=== PATIENT | female | born 1955 | race Caucasian/White ===

== ENCOUNTER → 2016-10-22 | Outpatient (CLI) | payer BC ==
--- NOTE | 2016-10-22 11:03 | MM ---
Reason for exam: screening (asymptomatic). Last mammogram was performed 3 years and 1 month ago. History: Patient is postmenopausal. Family history of breast cancer in mother at age 71 and breast cancer in maternal aunt. Benign right mammotome panel of the right breast, October 04, 2010. Benign right US cyst aspiration of the right breast, October 04, 2010. Physical Findings: A clinical breast exam by your physician is recommended on an annual basis and results should be correlated with mammographic findings. MG Screening Mammo w CAD Bilateral CC and MLO view(s) were taken. Prior study comparison: September 21, 2013, bilateral digital screening mammo w/CAD. November 15, 2011, CAD bilateral diagnostic mammogram. The breast tissue is heterogeneously dense. This may lower the sensitivity of mammography. Previous mammotome biopsy within the right breast x 2. There is no discrete abnormality. ASSESSMENT: Benign, BI-RAD 2 RECOMMENDATION: Routine screening mammogram of both breasts in 1 year.
== END | disposition home or self-care (01) ==
LOC: RADMAMWWP 08:50
PROVIDERS: ATTEND Family Medicine
DX: Z12.31 Encounter for screening mammogram for malignant neoplasm of breast (principal)

== ENCOUNTER → 2020-05-06 | Outpatient (CLI) | payer BC ==
--- NOTE | 2020-05-09 00:10 | CT ---
EXAMINATION TYPE: CT abdomen pelvis w con DATE OF EXAM: 05/06/2020 COMPARISON: None HISTORY: rt colon mass CT DLP: 473.7 mGycm Automated exposure control for dose reduction was used. TECHNIQUE: Helical acquisition of images was performed from the lung bases through the pelvis. CONTRAST: Performed with Oral Contrast and with IV Contrast, patient injected with 100 mL of Isovue 300. FINDINGS: LUNG BASES: Normal. LIVER: 2.2 x 1.9 cm hypodense lesion of segment 2 (3:14). BILIARY SYSTEM: Normal. PANCREAS: Normal. SPLEEN: Normal. ADRENALS: Normal. KIDNEYS: Too small to characterize hypodense lesions bilaterally. No hydronephrosis. BOWEL: There is a 9 x 5.7 x 8.5 cm soft tissue mass in the cecum and proximal ascending colon (3:51, 7:24). There is significant narrowing of the region of the ileocecal valve (3:48) without evidence o f obstructing dilatation or obstruction. There is also soft tissue thickening of the terminal ileum ( 3:53, 7:30). Appendix appears normal. PERITONEUM: No pneumoperitoneum. No free fluid. LYMPH NODES: Right lower quadrant prominent 6 x 12 mm and round 7 x 8 mm lymph nodes (3:44). PELVIS: Normal. VASCULATURE: No abdominal aortic aneurysm. MUSCULOSKELETAL: No aggressive osseous destructive lesions. Degenerative changes of the spine. Grade 1 anterolisthesis of L5 on S1 with bilateral pars defects. IMPRESSION: 1. Large right colon mass, with narrowing of the bowel lumen however no evidence of bowel obstructio n. There is adjacent eccentric soft tissue thickening of the terminal ileum which may represent neopl astic involvement. 2. Indeterminate 2.2 cm hypodense liver lesion may represent metastatic disease. Recommend MRI of th e liver for further characterization. 3. Prominent right lower quadrant lymph nodes nodes likely represent metastatic disease.
== END | disposition home or self-care (01) ==
LOC: RADCTMAIN 14:24
PROVIDERS: ATTEND Surgery
DX: K63.89 Other specified diseases of intestine (principal); M79.89 Other specified soft tissue disorders; R59.9 Enlarged lymph nodes, unspecified
CPT/HCPCS: 74177; Q9967

== ENCOUNTER → 2020-05-20 | Outpatient (CLI) | payer BC ==
--- NOTE | 2020-05-21 10:08 | PE ---
Nuclear medicine PET/CT HISTORY: Colorectal cancer, initial Patient received 13.4 mCi F-18 FDG intravenously in delayed scanning was performed from the skull bas e to the mid thighs. Localization and attenuation correction CT scan was performed. Correlation CT abdomen pelvis 05/06/2020 Chest and neck: The left lobe of the thyroid gland shows a focus of hypermetabolic uptake. There is n o mediastinal, axillary, or hilar adenopathy, no cervical or supraclavicular adenopathy, no additiona l hypermetabolic uptake. There is no evident lung mass, no pleural or pericardial effusion. ABDOMEN: There is again noted low-attenuation within the left lobe of the liver, no suspicious hyperm etabolic uptake within the liver however. There is no retroperitoneal adenopathy. In the right hemipe lvis there is a soft tissue mass present as noted on CT, there is associated hypermetabolic uptake. N o inguinal adenopathy. No additional suspicious hypermetabolic uptake. Osseous structures show no suspicious uptake. IMPRESSION: Findings consistent with colorectal carcinoma, abnormal uptake corresponding to patient's mass. Abnormal uptake in the left thyroid gland, consider dedicated imaging and biopsy. Indeterminat e abnormality within the liver.
== END | disposition home or self-care (01) ==
LOC: RADPETMAIN 12:10
PROVIDERS: ATTEND Internal Medicine Hematology & Oncology
DX: C18.2 Malignant neoplasm of ascending colon (principal); R93.89 Abnormal findings on diagnostic imaging of other specified body structures
CPT/HCPCS: 78815; A9552

== ENCOUNTER → 2020-05-25 | Outpatient (CLI) | payer BC ==
[2020-05-25 11:26] LABS: HCT 47.2 % (34.0-46.0); HGB 14.9 gm/dL (11.4-16.0); MCH 31.8 pg (25.0-35.0); MCHC 31.7 g/dL (31.0-37.0); MCV 100.3 fL (80.0-100.0); Mean Platelet Volume 7.2; Platelet Count 341 k/uL (150-450); RDW 13.1 % (11.5-15.5); WBC 7.9 k/uL (3.8-10.6)
[2020-05-25 11:39] LABS: Potassium 4.1 mmol/L (3.5-5.1)
== END | disposition home or self-care (01) ==
LOC: LABPAT 10:08
PROVIDERS: ATTEND Surgery
DX: Z01.818 Encounter for other preprocedural examination (principal); C18.9 Malignant neoplasm of colon, unspecified
CPT/HCPCS: 80051; 85027; 86850; 86900; 86901; 93005

== ENCOUNTER 2020-06-02 09:21 | Inpatient (IN) | payer BC ==
[~2020-06-02 09:21] MED LIST: ACETAMINOPHEN TAB 500 MG TAB PO PRN; HEPARIN SODIUM,PORCINE 5,000 UNIT/ML 1 ML VIAL SQ PRN; HYDROmorphone 0.5 MG/0.5 ML SYRINGE IVP PRN; MIDAZOLAM 2 MG/2 ML VIAL IV PRN; metroNIDAZOLE-NS PMX 500 MG in SALINE 1 100ML.BAG IVPB PRN
[2020-06-02] MEDS: LACTATED RINGERS 1,000 ML IV SCH ×2 (11:21→13:43)
[2020-06-02] MEDS ORDERED: LIDOCAINE 1% (10MG/ML) FOR IV START INTRADERMA ONE (11:21)
[2020-06-02] MEDS: ONDANSETRON 4 MG/2 ML VIAL IVP ONE ×2 (11:53→16:51)
[2020-06-02] MEDS: SCOPOLAMINE 1.5MG/72HR PATCH TRANSDERM ONE ×2 (11:54→16:51)
[2020-06-02] MEDS: DEXAMETHASONE SOD PHOSPHATE 4 MG/ML 1 ML VIAL IV ONE ×2 (11:54→16:51)
[2020-06-02] MEDS ORDERED: MIDAZOLAM 2 MG/2 ML VIAL IVP ONE (12:02)
--- NOTE | 2020-06-02 12:30 | P.HPADDEND ---
H&P Addendum H&P Addendum Date: 06/02/20 Please refer to history and physical dictated 05/18. Patient underwent PET scan which showed no activity at the liver lesion site. Patient here today for elective right colectomy. Risks of bleeding, infection, duodenal and ureteral injury, hernia, anastomotic leak, recurrence, respiratory and cardiac complications, Covid infection reviewed. She understands and wishes to proceed.
[2020-06-02] MEDS ORDERED: NALOXONE 0.4 MG/ML 1 ML VIAL IV PRN (12:35)
[2020-06-02] MEDS ORDERED: NALBUPHINE 10 MG/ML (1 ML AMP) IV PRN (12:35)
[2020-06-02] MEDS ORDERED: diphenhydrAMINE 50 MG/ML 1 ML VIAL IVP PRN (12:35)
--- NOTE | 2020-06-02 12:40 | P.ANPRN ---
Procedure Note - Anesthesia - Epidural/Spinal Epidural Continuous Time Out Performed: Yes Date of Procedure: 06/02/20 Location of Patient: PreOp Indication: Acute Post-Operative Pain Sedation Type: Sedate with meaningful contact maintained Preparation: Sterile Dressing Position: Sitting Catheter: Indwelling Needle Guage: 18 Injectate: Test Dose Lidocaine1.5% w/1:200,000 epi (3cc) Narrative: L1-L2 Space and Loss of resistance to air technique used Blood Aspirated: No Pain Paresthesia on Injection Noted: No Events: Uneventful and Well Tolerated
[2020-06-02] MEDS ORDERED: GLYCOPYRROLATE 0.2 MG/ML 2 ML VIAL ONE (13:41)
[2020-06-02] MEDS ORDERED: MIDAZOLAM 2 MG/2 ML VIAL ONE (13:41)
[2020-06-02] MEDS ORDERED: NEOSTIGMINE 1 MG/ML 10 ML VIAL ONE (13:41)
[2020-06-02] MEDS ORDERED: fentaNYL (PF) 50 MCG/ML 2 ML AMP ONE (13:41)
[2020-06-02] MEDS ORDERED: ROCURONIUM 10 MG/ML (10 ML VIAL) IV ONE (13:41)
[2020-06-02] MEDS ORDERED: ePHEDrine SULFATE/0.9% NACL/PF 50 MG/5 ML SYRINGE IV ONE (13:41)
[2020-06-02] MEDS ORDERED: PROPOFOL 10 MG/ML 20 ML VIAL IV ONE (13:41)
[2020-06-02] MEDS ORDERED: LIDOCAINE 1% INJ 10MG/ML (20 ML MDV) ONE (13:41)
[2020-06-02] MEDS ORDERED: LACTATED RINGERS 1,000 ML IV ONE (14:24)
[2020-06-02] MEDS ORDERED: BENZOCAINE/MENTHOL LOZENG 1 EACH LOZENGE MUCOUS MEM PRN (15:17)
[2020-06-02] MEDS: ROPIVACAINE 400 MG, fentaNYL (PF) 625 MCG in SODIUM CHLORIDE 0.9% 158 ML EPIDURAL PRN ×2 (15:17→16:25)
--- NOTE | 2020-06-02 15:24 | P.OP ---
Date of Procedure: 06/02/20 Procedure(s) Performed: PREOPERATIVE DIAGNOSIS: Right colon cancer POSTOPERATIVE DIAGNOSIS: Same PROCEDURE: Right colectomy SURGEON: Zuhair EBL: 25 mL ANESTHESIA: General COMPLICATIONS: None OPERATIVE PROCEDURE: Placement placed in the operating table in the supine position. The patient was placed under general anesthesia. Abdomen was then prepped and draped sterilely. Midline incision made using the scalpel. Dissection through the subcutaneous tissues and fascia took place using electrocautery. Entrance into the perineal cavity occurred. Bookwalter retractor was utilized. The palpable mass was identified at the cecum. This measured approximately 6 cm in size. There was one palpable somewhat abnormal appearing lymph node within the mesentery adjacent to the right colic artery. This was included with our specimen. The cecum and terminal ileum were mobilized by incising the peritoneum. The white line of Toldt was incised as well. The mesentery of the cecum and ascending colon was brought medially. The duodenum was carefully preserved and no cautery was used adjacent to the duodenu m. The terminal ileum was divided using a linear 75 stapler. The transverse colon was then divided using a linear 75 stapler. Mesentery of the transverse colon and ascending colon cecum and terminal ileum was then divided using a combination of 0 silk ties and the LigaSure device. Specimen was passed off at that point. The area was irrigated. No bleeding was seen. The antimesenteric portion of the staple line of both the ileum and transverse colon was excised using electrocautery. The linear 75 stapler was fired along the antimesenteric border creating a [id number] anastomosis antiperistaltic. The defect was then closed using a TX 60 device. The TX 60 stapler line was imbricated using interrupted 3-0 GI silk sutures. A 3-0 GI silk crotch stitch was also placed. Again irrigation took place with no evidence of bleeding. No additional abnormalities in the bowel both small bowel and colon were identified. Palpation of the liver revealed no palpable masses. Irrigation of the abdomen took place. No bleeding was seen. The midline fascia was then reapproximated using 2 separate double-stranded looped PDS sutures. The subcutaneous tissues were closed using 3-0 Vicryl sutures. The skin was closed using jenny. Sterile dressings were applied. At the end of this procedure the sponge needle and ensure counts were correct. DISPOSITION: Stable to recovery room
[2020-06-02] MEDS: HEPARIN SODIUM,PORCINE 5,000 UNIT/ML 1 ML VIAL SQ SCH ×2 (16:50→21:39)
[2020-06-02] MEDS: D5-0.45% NACL WITH KCL 20MEQ/L 1,000 ML IV SCH (21:40)
[2020-06-02] MEDS: FAMOTIDINE 20 MG/2 ML VIAL IV SCH (21:43)
--- NOTE | 2020-06-02 23:49 | CONS ---
CONSULTATION DATE OF SERVICE: 06/02/2020. REASON FOR CONSULTATION: Advice regarding hypothyroidism and colon cancer requested by Dr. Moffett. HISTORY OF PRESENT ILLNESS: This 64-year-old woman with a past medical history of hypothyroidism, history of colon cancer, hernia repair, history of colonoscopy, previous history of nicotine dependence being followed by Dr. Yolie Moffett in the outpatient setting underwent right colectomy by Dr. Moffett for right colon cancer. The patient tolerated the procedure well. There is no history of fever, rigors. No history of headache, loss of consciousness, chest pain, palpitations at this time. PAST MEDICAL HISTORY: History of thyroid disorder, history of malignant tumor of the colon, history of hernia repair. MEDICATIONS: Medications prior to admission, home medications are: 1. Lipitor 10 mg daily. 2. Synthroid 100 mcg p.o. q.a.m. 3. Vitamin D2, 50,000 q.7 days. ALLERGIES: None. FAMILY HISTORY: History of breast cancer in the family. SOCIAL HISTORY: Previous history of smoking. No history of alcohol intake. REVIEW OF SYSTEMS: ENT: No diminished hearing or diminished vision. CARDIOVASCULAR SYSTEM: No angina. RESPIRATORY SYSTEM: No cough. GI: As mentioned earlier. : No dysuria or retention. NERVOUS SYSTEM: No numbness or weakness. ALLERGY/IMMUNOLOGY: No history of asthma or hayfever. MUSCULOSKELETAL: As mentioned earlier. HEMATOLOGY/ONCOLOGY: As mentioned earlier. ENDOCRINE: As mentioned earlier. CONSTITUTIONAL: As mentioned earlier. DERMATOLOGY: Negative. RHEUMATOLOGY: Negative. PSYCHIATRY: As mentioned earlier. PHYSICAL EXAMINATION: The patient is alert and oriented x3. Pulse 60, blood pressure is 123/71, respiration 17, temperature 97.7, pulse ox 96% on room air. HEENT: Conjunctivae normal. NECK: No jugular venous distention. CARDIOVASCULAR: S1, S2 muffled. RESPIRATORY: Breath sounds diminished at the bases. No rhonchi, no crackles. ABDOMEN: Soft, nontender. Status post surgery. LEGS: No edema. No swelling. NERVOUS SYSTEM: No focal deficits. LABS: Previous preop labs, hemoglobin 14.9. Otherwise, BUN is 8, creatinine is 1. ASSESSMENT: 1. Status post right colectomy for right colon cancer. 2. History of hypothyroidism. 3. History of hernia repair. 4. Remote history of nicotine dependence. 5. FULL CODE. RECOMMENDATIONS AND DISCUSSION: This 64-year-old woman who presented with multiple medical issues, at this time I recommend to continue the current medications, continue symptomatic treatment. Otherwise, DVT prophylaxis, incentive spirometry. Resume the home medications when the patient is p.o. We will follow the patient closely. Patient may be asked to follow up with Dr. Yolie Moffett closely after discharge. Thank you Dr. Moffett for letting us participate in the care of this patient. MMODL / IJN: [id number] /
[2020-06-03] MEDS: D5-0.45% NACL WITH KCL 20MEQ/L 1,000 ML IV SCH ×4 (05:28→21:34)
[2020-06-03 06:07] LABS: Basophils % (A) 0 %; Eosinophils % (A) 0 %; HCT 40.2 % (34.0-46.0); Lymphocytes # (A) 0.7 k/uL (1.0-4.8); Lymphocytes % (A) 6 %; MCH 32.5 pg (25.0-35.0); MCHC 32.4 g/dL (31.0-37.0); MCV 100.1 fL (80.0-100.0); Mean Platelet Volume 7.5; Monocytes # (A) 0.6 k/uL (0-1.0); Monocytes % (A) 5 %; Neutrophils # (A) 10.9 k/uL (1.3-7.7); Neutrophils % (A) 88 %; Platelet Count 245 k/uL (150-450); RBC 4.02 m/uL (3.80-5.40); RDW 13.3 % (11.5-15.5); WBC 12.3 k/uL (3.8-10.6)
--- NOTE | 2020-06-03 06:41 | P.PN ---
Progress Note - Text Progress Note Date: 06/03/20 Patient without complaints. Tolerating clears. Denies headache or weakness. Pain 5/10. Epidural at 8 ml/hr. Epidural site clean and dry. POD#1 s/p colectomy. Assessment and plan: will continue epidural. Patient is nervous about working with PT/OT and walking around today, and does note that she is having pain with coughing. We will increase the rate to 10.
[2020-06-03] MEDS: LACTATED RINGERS 1,000 ML IV SCH (09:35)
[2020-06-03] MEDS: LEVOTHYROXINE 100 MCG TAB PO SCH (09:36)
[2020-06-03] MEDS: FAMOTIDINE 20 MG/2 ML VIAL IV SCH ×2 (09:39→20:35)
[2020-06-03] MEDS: ATORVASTATIN 10 MG TAB PO SCH (09:39)
[2020-06-03] MEDS: HEPARIN SODIUM,PORCINE 5,000 UNIT/ML 1 ML VIAL SQ SCH ×3 (09:39→23:32)
[2020-06-03] MEDS: ALVIMOPAN 12 MG CAPSULE PO SCH ×2 (09:39→23:32)
[2020-06-03 09:40] LABS: African American GFR (CKD) 106.9 (60.0-200.0); Anion Gap 8.1 mmol/L (4.00-12.00); BUN/Creat Ratio 12.86 Ratio (12.00-20.00); Calcium 8.4 mg/dL (8.7-10.3); Carbon Dioxide 26.9 mmol/L (21.6-31.8); Non-African American GFR(CKD) 92.2 (60.0-200.0); Potassium 3.9 mmol/L (3.5-5.5)
--- NOTE | 2020-06-03 10:49 | P.PN ---
<Pao King - Last Filed: 06/03/20 10:44> Subjective Progress Note Date: 06/03/20 CHIEF COMPLAINT: Right colon cancer HISTORY OF PRESENT ILLNESS: Right colon cancer status post right colectomy. Patient is complaining of abdominal pain. And that it hurts to take in a deep breath. Anesthesia is increasing her epidural. She is passing flatus. No bowel movement. She denies any nausea or vomiting. Afebrile. WBC 12.3 Hgb 13 PHYSICAL EXAM: VITAL SIGNS: Reviewed. GENERAL: Well-developed in no acute distress. HEENT: No sclera icterus. Extraocular movements grossly intact. Moist buccal mucosa. Head is atraumatic, normocephalic. ABDOMEN: Soft. Mildly distended. Small amount of dried blood noted on middle of incision dressing NEUROLOGIC: Alert and oriented. Cranial nerves II through XII grossly intact. ASSESSMENT: 1. Right colon cancer status post right colectomy PLAN: -Anesthesia increased epidural strength for pain control -Continue clear liquid diet -Continue IV fluids -Encourage incentive spirometer use -GI prophylaxis Pepcid and DVT prophylaxis subcu heparin Physician Environmental Services Specialist note has been reviewed by physician. Signing provider agrees with the documented findings, assessment, and plan of care. Objective - Vital Signs Vital signs: Vital Signs Temp 98.2 F 06/03/20 08:00 Pulse 71 06/03/20 08:00 Resp 18 06/03/20 08:00 BP 132/76 06/03/20 08:00 Pulse Ox 95 06/03/20 08:00 Intake & Output 06/02/20 06/03/20 06/03/20 18:59 06:59 18:59 Intake Total 2007.1 1030 Output Total 215 300 Balance 1793.1 730 Weight 61 kg Intake: IV 2007.1 Intake, IV Titration 1000 Amount D5-0.45% NaCl with KCl 1000 20Meq/l 1,000 ml @ 125 mls/hr IV .Q8H [facility] Rx#: [id number] Oral 30 Output: Urine 190 300 Estimated Blood Loss 25 Other: Voiding Method Indwelling Catheter Indwelling Catheter Indwelling Catheter - Labs CBC & Chem 7: 06/03/20 05:24 06/03/20 05:24 Labs: Abnormal Lab Results - Last 24 Hours (Table) 06/03/20 06/03/20 Range/Units 05:24 05:24 WBC 12.3 H (3.8-10.6) k/uL MCV 100.1 H (80.0-100.0) fL Neutrophils # 10.9 H (1.3-7.7) k/uL Lymphocytes # 0.7 L (1.0-4.8) k/uL Glucose 123 H (70-110) mg/dL Calcium 8.4 L (8.7-10.3) mg/dL <Luke Moffett - Last Filed: 06/03/20 13:46> Subjective As above. Patient doing well today. 1 episodes of vomiting. Stay on clear liquids. Increase activity. Tentatively plan epidural removal on Saturday. Continue Entereg. Ambulate. Objective - Vital Signs Vital signs: Vital Signs Temp 98.2 F 06/03/20 08:00 Pulse 71 06/03/20 08:00 Resp 18 06/03/20 08:00 BP 132/76 06/03/20 08:00 Pulse Ox 95 06/03/20 08:00 Intake & Output 06/02/20 06/03/20 06/03/20 18:59 06:59 18:59 Intake Total 2008.1 1030 Output Total 215 300 Balance 1793.1 730 Weight 61 kg Intake: IV 2007.1 Intake, IV Titration 1000 Amount D5-0.45% NaCl with KCl 1000 20Meq/l 1,000 ml @ 125 mls/hr IV .Q8H [facility] Rx#: [id number] Oral 30 Output: Urine 190 300 Estimated Blood Loss 25 Other: Voiding Method Indwelling Catheter Indwelling Catheter Indwelling Catheter - Labs CBC & Chem 7: 06/03/20 05:24 06/03/20 05:24 Labs: Abnormal Lab Results - Last 24 Hours (Table) 06/03/20 06/03/20 06/03/20 Range/Units 05:24 05:24 10:00 WBC 12.3 H (3.8-10.6) k/uL MCV 100.1 H (80.0-100.0) fL Neutrophils # 10.9 H (1.3-7.7) k/uL Lymphocytes # 0.7 L (1.0-4.8) k/uL Glucose 123 H (70-110) mg/dL Calcium 8.4 L (8.7-10.3) mg/dL Urine Protein Trace H (Negative) Urine Blood Moderate H (Negative) Ur Leukocyte Esterase Small H (Negative) Urine RBC 14 H (0-5) /hpf Urine WBC 11 H (0-5) /hpf Urine Mucus Many H (None) /hpf
[2020-06-03 11:32] LABS: Appearance,Urine Clear (Clear); Bilirubin,Urine Negative (Negative); Blood,Urine Moderate (Negative); Color,Urine Yellow; Glucose,Urine (UA) Negative (Negative); Ketones,Urine Negative (Negative); Leukocyte Esterase,Urine Small (Negative); Mucus,Urine Many /hpf; Nitrite,Urine Negative (Negative); Protein,Urine Trace (Negative); RBC,Urine 14 /hpf (0-5); Urobilinogen,Urine <2.0 mg/dL (<2.0); WBC,Urine 11 /hpf (0-5)
[2020-06-03] MEDS: ROPIVACAINE 400 MG, fentaNYL (PF) 625 MCG in SODIUM CHLORIDE 0.9% 158 ML EPIDURAL PRN (17:03)
--- NOTE | 2020-06-03 18:35 | PN ---
PROGRESS NOTE DATE OF SERVICE: 06/03/2020 This 64-year-old woman who was admitted after right colectomy for right colon cancer is improving at this time. No chest pain. No palpitations. No fever. PHYSICAL EXAMINATION: Alert and oriented x3. The pulse is 71, blood pressure 132/76, respiration 18, temperature 98.2, pulse ox 94% on room air. HEENT: Conjunctivae normal. NECK: No jugular venous distention. CARDIOVASCULAR SYSTEM: S1, S2 muffled. RESPIRATORY SYSTEM: Breath sounds diminished at the bases. No rhonchi. No crackles. ABDOMEN: Soft. Status post surgery. LEGS: No edema. No swelling. NERVOUS SYSTEM: No focal deficit. LABS: WBC 12.6, hemoglobin 13. UA noted. ASSESSMENT: 1. Status post right colectomy for right colon cancer. 2. Increased white count, possibly reactive. 3. History of hypothyroidism. 4. History of hernia repair. 5. Remote history of nicotine dependence. 6. FULL CODE. RECOMMENDATIONS AND DISCUSSION: I recommend to continue current medications, continue with the monitoring, symptomatic treatment. The patient has abnormal urine. I would recommend a urine culture. Otherwise, watch for any fever. Incentive spirometry. DVT prophylaxis. Closely follow with Dr. Moffett. Further recommendations to follow. MMODL / IJN: [id number] /
[2020-06-03] MEDS: ONDANSETRON 4 MG/2 ML VIAL IVP PRN (20:30)
[2020-06-04] MEDS: ONDANSETRON 4 MG/2 ML VIAL IVP PRN (04:44)
[2020-06-04] MEDS: D5-0.45% NACL WITH KCL 20MEQ/L 1,000 ML IV SCH ×2 (05:35→14:26)
[2020-06-04 07:05] LABS: Basophils % (A) 0 %; Eosinophils % (A) 0 %; HCT 41.2 % (34.0-46.0); HGB 13.4 gm/dL (11.4-16.0); Lymphocytes # (A) 0.5 k/uL (1.0-4.8); Lymphocytes % (A) 5 %; MCH 33.1 pg (25.0-35.0); MCHC 32.6 g/dL (31.0-37.0); MCV 101.5 fL (80.0-100.0); Mean Platelet Volume 7.3; Monocytes # (A) 0.5 k/uL (0-1.0); Monocytes % (A) 6 %; Neutrophils # (A) 7.8 k/uL (1.3-7.7); Neutrophils % (A) 87 %; Platelet Count 223 k/uL (150-450); RBC 4.06 m/uL (3.80-5.40); RDW 12.7 % (11.5-15.5)
--- NOTE | 2020-06-04 08:59 | P.PN ---
Progress Note - Text Progress Note Date: 06/04/20 (145) Anesthesia Postop #2 Status post right colectomy with epidural day 3 Patient seen and examined. Doing well without complaint. VAS less than 4. Ropivacaine 0.16% with note 2.5 mcg/mL at 10 mL an hour . Objective: Vital signs reviewed Lungs: Good chest excursion Abdomen: Appears nondistended Other: Epidural Site Intact without induration. Dressing intact Neuro: No apparent motor block. Sensory within normal limits. Assessment: Status post right hemicolectomy postop day #2 Plan: Continue current care with your medical management. Anticipate discontinued tomorrow.
[2020-06-04] MEDS: ALVIMOPAN 12 MG CAPSULE PO SCH (09:11)
[2020-06-04] MEDS: LEVOTHYROXINE 100 MCG TAB PO SCH (09:11)
[2020-06-04] MEDS: FAMOTIDINE 20 MG/2 ML VIAL IV SCH ×2 (09:12→21:41)
[2020-06-04] MEDS: HEPARIN SODIUM,PORCINE 5,000 UNIT/ML 1 ML VIAL SQ SCH ×3 (09:12→21:41)
[2020-06-04] MEDS: ATORVASTATIN 10 MG TAB PO SCH (09:12)
--- NOTE | 2020-06-04 11:18 | P.PN ---
Progress Note - Text Progress Note Date: 06/04/20 Patient feels well. She's had some minimal flatus. On exam vital signs are stable. Abdomen soft. Incisions are clean and intact. Status post right club E. Patient continue receive supportive care.
[2020-06-04] MEDS: METOCLOPRAMIDE 5 MG/ML 2 ML VIAL IVP PRN (12:11)
[2020-06-04 13:36] LABS: African American GFR (CKD) 106.9 (60.0-200.0); Anion Gap 4.5 mmol/L (4.00-12.00); BUN/Creat Ratio 7.14 Ratio (12.00-20.00); Calcium 8.4 mg/dL (8.7-10.3); Carbon Dioxide 26.5 mmol/L (21.6-31.8); Non-African American GFR(CKD) 92.2 (60.0-200.0); Potassium 4.3 mmol/L (3.5-5.5)
[2020-06-04] MEDS: ROPIVACAINE 400 MG, fentaNYL (PF) 625 MCG in SODIUM CHLORIDE 0.9% 158 ML EPIDURAL PRN (17:39)
[2020-06-05] MEDS: ALVIMOPAN 12 MG CAPSULE PO SCH ×3 (00:22→20:30)
[2020-06-05] MEDS: D5-0.45% NACL WITH KCL 20MEQ/L 1,000 ML IV SCH ×4 (00:23→20:34)
[2020-06-05 06:44] LABS: Basophils % (A) 0 %; Eosinophils % (A) 1 %; HCT 42.8 % (34.0-46.0); HGB 13.5 gm/dL (11.4-16.0); Lymphocytes # (A) 0.6 k/uL (1.0-4.8); Lymphocytes % (A) 8 %; MCHC 31.5 g/dL (31.0-37.0); MCV 101.6 fL (80.0-100.0); Macrocytosis Slight; Mean Platelet Volume 7.6; Monocytes # (A) 0.5 k/uL (0-1.0); Monocytes % (A) 8 %; Neutrophils # (A) 5.7 k/uL (1.3-7.7); Neutrophils % (A) 82 %; Platelet Count 209 k/uL (150-450); RBC 4.21 m/uL (3.80-5.40); RDW 13.1 % (11.5-15.5); WBC 6.9 k/uL (3.8-10.6)
[2020-06-05] MEDS: LEVOTHYROXINE 100 MCG TAB PO SCH (09:43)
[2020-06-05] MEDS: METOCLOPRAMIDE 5 MG/ML 2 ML VIAL IVP PRN ×3 (09:43→23:44)
[2020-06-05] MEDS: FAMOTIDINE 20 MG/2 ML VIAL IV SCH ×2 (09:43→20:29)
[2020-06-05] MEDS: HEPARIN SODIUM,PORCINE 5,000 UNIT/ML 1 ML VIAL SQ SCH ×3 (09:43→23:49)
[2020-06-05] MEDS: ATORVASTATIN 10 MG TAB PO SCH (09:44)
--- NOTE | 2020-06-05 10:16 | P.PN ---
Progress Note - Text Progress Note Date: 06/05/20 Anesthesia Postop day 3 Status post colectomy with epidural day 4 Patient seen and examined. Doing well without complaint. VAS 5 out of 10. Still complaining of nausea with medicines available. Mild pruritus which is tolerable. Epidural to come out today. Discussed with nurse. Labs okay. Subcu heparin given at 943 therefore between 2 and 4 PM epidural will be pulled in order placed. Objective: Vital signs reviewed Lungs: Good chest excursion Abdomen: Appears nondistended Other: Epidural Site Intact without induration. Dressing intact Neuro: No apparent motor block. Sensory within normal limits. Assessment: Status post colectomy postop day 3 Plan: Continue current care with your medical management.
--- NOTE | 2020-06-05 11:21 | P.PN ---
Progress Note - Text Progress Note Date: 06/05/20 Patient feels well. She is postoperative day 3. Her epidural most likely, today. On exam her vital signs are stable. Abdomen soft. Incision is clean and intact. Status post right colectomy. We discussed with discharged home the next 24-48 hours.
[2020-06-05] MEDS ORDERED: MORPHINE SULFATE 2 MG/ML SYRINGE IVP PRN ×2 (18:04→18:58)
[2020-06-05] MEDS: MORPHINE SULFATE 2 MG/ML SYRINGE IVP PRN (23:45)
--- NOTE | 2020-06-06 02:05 | P.PN ---
Subjective Progress Note Date: 06/04/20 Patient is a 64-year-old female was admitted to hospital after right colectomy for right colon cancer. 06/04/20 Patient is currently resting in the bed comfortably. No complaints of chest pain or shortness breath. Able to use incentive spirometry. Patient does have minimal flatus. No bowel media. Currently nothing by mouth. Patient has been afebrile. Patient does have nausea. No episodes of vomiting. Current medications reviewed. Objective - Vital Signs Vital signs: Vital Signs Temp 97.7 F 06/04/20 14:21 Pulse 75 06/04/20 14:21 Resp 16 06/04/20 14:21 BP 133/79 06/04/20 14:21 Pulse Ox 96 06/04/20 14:21 Intake & Output 06/03/20 06/04/20 06/04/20 18:59 06:59 18:59 Intake Total 60 150 Output Total 200 2000 Balance -140 150 -2000 Intake: Intake, IV Titration 60 Amount Ropivacaine 400 mg 60 fentaNYL (PF) 625 mcg In Sodium Chloride 0.9% 158 ml @ Per Protocol EPIDURAL .Q0M PRN Rx#: [id number] Oral 150 Output: Urine 200 2000 Other: Voiding Method Indwelling Catheter Indwelling Catheter Indwelling Catheter - Exam PHYSICAL EXAMINATION: Patient is lying in the bed comfortably, no acute distress, awake alert and oriented.. HEENT: Normocephalic. Neck is supple. Pupils reactive. Nostrils clear. Oral cavity is moist. Ears reveal no drainage. Neck reveals no JVD, carotid bruits, or thyromegaly. CHEST EXAMINATION: Trachea is central. Symmetrical expansion. Lung hernandez clear to auscultation and percussion. CARDIAC: Normal S1, S2 with no gallops. No murmurs ABDOMEN: Soft. Bowel sounds dimionished. Abdominal binder on the surgical site. No organomegaly. No abdominal bruits. Extremities: reveal no edema. No clubbing or cyanosis Neurologically awake, alert, oriented x3 with well-coordinated movements. No focal deficits noted Skin: No rash or skin lesions. Psychiatric: Coperative. Nonsuicidal Musculoskeletal: No joint swelling or deformity. Normal range of motion. - Labs CBC & Chem 7: 06/05/20 06:25 06/04/20 06:37 Labs: Abnormal Lab Results - Last 24 Hours (Table) 06/04/20 06/04/20 Range/Units 06:37 06:37 MCV 101.5 H (80.0-100.0) fL Neutrophils # 7.8 H (1.3-7.7) k/uL Lymphocytes # 0.5 L (1.0-4.8) k/uL BUN 5.0 L (9.0-27.0) mg/dL BUN/Creatinine Ratio 7.14 L (12.00-20.00) Ratio Glucose 135 H (70-110) mg/dL Calcium 8.4 L (8.7-10.3) mg/dL Microbiology - Last 24 Hours (Table) 06/03/20 17:46 Urine Culture - Preliminary Urine,Catheterized Assessment and Plan Assessment: Status post right colectomy due to right colon cancer Leukocytosis likely reactive Hypothyroidism History of hernia repair Remote history of nicotine abuse Full code Plan: Patient will continue on IV hydration. Continue pain medications and bowel regimen. Currently DVT prophylaxis and follow-up closely. Further recommendations based on clinical course.
--- NOTE | 2020-06-06 02:07 | P.PN ---
Subjective Progress Note Date: 06/05/20 Principal diagnosis: s/p rt colectomy Patient is a 64-year-old female was admitted to hospital after right colectomy for right colon cancer. 06/04/20 Patient is currently resting in the bed comfortably. No complaints of chest pain or shortness breath. Able to use incentive spirometry. Patient does have minimal flatus. No bowel media. Currently nothing by mouth. Patient has been afebrile. Patient does have nausea. No episodes of vomiting. 06/05/2020 Patient is currently resting in bed comfortably. No complaints of chest pain or shortness of. Pain is controlled and epidural is being removed today. No nausea vomiting or diarrhea. Patient is passing flatus and was started on clear liquid diet. Increase incentive spirometry and ambulation. Current medications reviewed. Objective - Vital Signs Vital signs: Vital Signs Temp 98.2 F 06/05/20 14:05 Pulse 76 06/05/20 14:05 Resp 18 06/05/20 14:05 BP 147/87 06/05/20 14:05 Pulse Ox 93 L 06/05/20 14:05 Intake & Output 06/04/20 06/05/20 06/05/20 18:59 06:59 18:59 Intake Total 646 30 Output Total 1999 725 1075 Balance -7100 -447 -1070 Intake: Intake, IV Titration 246 Amount Ropivacaine 400 mg 246 fentaNYL (PF) 625 mcg In Sodium Chloride 0.9% 158 ml @ Per Protocol EPIDURAL .Q0M PRN Rx#: [id number] Oral 30 Other 400 Output: Urine 1999 725 1075 Uretheral (Chung) 1075 Other: Voiding Method Indwelling Catheter Indwelling Catheter Indwelling Catheter - Exam PHYSICAL EXAMINATION: Patient is lying in the bed comfortably, no acute distress, awake alert and oriented.. HEENT: Normocephalic. Neck is supple. Pupils reactive. Nostrils clear. Oral cavity is moist. Ears reveal no drainage. Neck reveals no JVD, carotid bruits, or thyromegaly. CHEST EXAMINATION: Trachea is central. Symmetrical expansion. Lung hernandez clear to auscultation and percussion. CARDIAC: Normal S1, S2 with no gallops. No murmurs ABDOMEN: Soft. Bowel sounds sluggish. Abdominal binder on the surgical site. No organomegaly. No abdominal bruits. Extremities: reveal no edema. No clubbing or cyanosis Neurologically awake, alert, oriented x3 with well-coordinated movements. No focal deficits noted Skin: No rash or skin lesions. Psychiatric: Coperative. Nonsuicidal Musculoskeletal: No joint swelling or deformity. Normal range of motion. - Labs CBC & Chem 7: 06/05/20 06:25 06/04/20 06:37 Labs: Abnormal Lab Results - Last 24 Hours (Table) 06/05/20 Range/Units 06:25 MCV 101.6 H (80.0-100.0) fL Lymphocytes # 0.6 L (1.0-4.8) k/uL Microbiology - Last 24 Hours (Table) 06/03/20 17:46 Urine Culture - Final Urine,Catheterized Assessment and Plan Assessment: Status post right colectomy due to right colon cancer Leukocytosis likely reactive. resolved Hypothyroidism History of hernia repair Remote history of nicotine abuse Full code Plan: Patient will continue on IV hydration. Continue pain medications and bowel regimen. Currently DVT prophylaxis and follow-up closely. Further recommendations based on clinical course.
[2020-06-06] MEDS: MORPHINE SULFATE 2 MG/ML SYRINGE IVP PRN ×2 (02:52→05:54)
[2020-06-06] MEDS: LEVOTHYROXINE 100 MCG TAB PO SCH (05:54)
[2020-06-06] MEDS: FAMOTIDINE 20 MG/2 ML VIAL IV SCH ×2 (09:26→20:48)
[2020-06-06] MEDS: ATORVASTATIN 10 MG TAB PO SCH (09:26)
[2020-06-06] MEDS: ALVIMOPAN 12 MG CAPSULE PO SCH ×2 (09:26→21:17)
[2020-06-06] MEDS: HEPARIN SODIUM,PORCINE 5,000 UNIT/ML 1 ML VIAL SQ SCH ×3 (09:26→23:23)
[2020-06-06] MEDS: D5-0.45% NACL WITH KCL 20MEQ/L 1,000 ML IV SCH (09:36)
--- NOTE | 2020-06-06 10:59 | P.PN ---
<Pao King - Last Filed: 06/06/20 10:55> Subjective Progress Note Date: 06/06/20 CHIEF COMPLAINT: Right colon cancer HISTORY OF PRESENT ILLNESS: Right colon cancer status post right colectomy. Patient's epidural was discontinued yesterday. She is complaining of abdominal pain more so on the right side. She did have an episode of vomiting yesterday after IV morphine given. Patient reports passing gas. Denies any bowel movement. She is currently on a clear liquid diet. Afebrile. No new labs for today. WBC 6.9 yesterday PHYSICAL EXAM: VITAL SIGNS: Reviewed. GENERAL: Well-developed in no acute distress. HEENT: No sclera icterus. Extraocular movements grossly intact. Moist buccal mucosa. Head is atraumatic, normocephalic. ABDOMEN: Soft. Mildly distended. Tenderness with palpation more on the right side of the abdomen NEUROLOGIC: Alert and oriented. Cranial nerves II through XII grossly intact. ASSESSMENT: 1. Right colon cancer status post right colectomy PLAN: -Add scheduled Toradol to help with pain control -Encourage patient to ambulate -Discontinue Chung catheter -Continue clear liquid diet -Continue IV fluids -GI prophylaxis Pepcid and DVT prophylaxis subcu heparin Physician Environmental Epidemiologist note has been reviewed by physician. Signing provider agrees with the documented findings, assessment, and plan of care. Objective - Vital Signs Vital signs: Vital Signs Temp 97.1 F L 06/06/20 03:00 Pulse 89 06/06/20 03:55 Resp 18 06/06/20 03:00 BP 149/93 06/06/20 03:55 Pulse Ox 93 L 06/06/20 03:00 Intake & Output 06/05/20 06/06/20 06/06/20 18:59 06:59 18:59 Intake Total 1000 Output Total 1075 3400 Balance -75 -3400 Intake: Intake, IV Titration 1000 Amount D5-0.45% NaCl with KCl 1000 20Meq/l 1,000 ml @ 125 mls/hr IV .Q8H [facility] Rx#: [id number] Output: Urine 1075 3400 Uretheral (Chung) 1075 1200 Other: Voiding Method Indwelling Catheter Indwelling Catheter # Bowel Movements 0 - Labs CBC & Chem 7: 06/05/20 06:25 12/05/20 06:37 <Luke Moffett - Last Filed: 06/06/20 11:10> Subjective As above. Patient had episodes of nausea and vomiting. Seemed to be after narcotics were utilized. She is passing gas. Mild bloating. Mild pain. Continue liquid diet. Increase activity. Add Toradol for pain control. Await pathology. Objective - Vital Signs Vital signs: Vital Signs Temp 97.1 F L 06/06/20 03:00 Pulse 89 06/06/20 03:55 Resp 18 06/06/20 03:00 BP 149/93 06/06/20 03:55 Pulse Ox 93 L 06/06/20 03:00 Intake & Output 06/05/20 06/06/20 06/06/20 18:59 06:59 18:59 Intake Total 1000 Output Total 1075 3400 Balance -75 -3400 Intake: Intake, IV Titration 1000 Amount D5-0.45% NaCl with KCl 1000 20Meq/l 1,000 ml @ 125 mls/hr IV .Q8H [facility] Rx#: [id number] Output: Urine 1075 3400 Uretheral (Chung) 1075 1200 Other: Voiding Method Indwelling Catheter Indwelling Catheter # Bowel Movements 0 - Labs CBC & Chem 7: 06/05/20 06:25 06/04/20 06:37
[2020-06-06 11:17] LABS: African American GFR (CKD) >90 (>60 ml/min/1.73 sqM); Anion Gap 3 mmol/L; Blood Urea Nitrogen <2 mg/dL (7-17); Calcium 8.5 mg/dL (8.4-10.2); Carbon Dioxide 30 mmol/L (22-30); Chloride 99 mmol/L (98-107); Glucose 149 mg/dL (74-99); Non-African American GFR(CKD) >90 (>60 ml/min/1.73 sqM); Potassium 4.2 mmol/L (3.5-5.1); Sodium 132 mmol/L (137-145)
--- NOTE | 2020-06-06 11:25 | P.PN ---
Subjective s/p rt colectomy Patient is a 64-year-old female was admitted to hospital after right colectomy for right colon cancer. 06/04/20 Patient is currently resting in the bed comfortably. No complaints of chest pain or shortness breath. Able to use incentive spirometry. Patient does have minimal flatus. No bowel media. Currently nothing by mouth. Patient has been afebrile. Patient does have nausea. No episodes of vomiting. 06/05/2020 Patient is currently resting in bed comfortably. No complaints of chest pain or shortness of. Pain is controlled and epidural is being removed today. No nausea vomiting or diarrhea. Patient is passing flatus and was started on clear liquid diet. Increase incentive spirometry and ambulation. 06/06/2020 Patient pain is better controlled patient was started on nonsteroidal anti- intermittent medications. Patient is on D5 half-normal saline because of which patient became hypernatremic D5 half-normal saline will be discontinued patient is tolerating clear liquid diet well patient is passing gas did not move her bowel yet. Constitutional: Denied any fatigue denied any fever. Cardio vascular: denied any chest pain, palpitations Gastrointestinal denied any nausea vomiting Pulmonary: Denied any shortness of breath cough Neurologic denied any new focal deficits All inpatient medications were reviewed and appropriate changes in these medications as dictated in the interval history and assessment and plan. Objective - Vital Signs Vital signs: Vital Signs Temp 97.1 F L 06/06/20 03:00 Pulse 89 06/06/20 03:55 Resp 18 06/06/20 03:00 BP 149/93 06/06/20 03:55 Pulse Ox 93 L 06/06/20 03:00 Intake & Output 06/05/20 06/06/20 06/06/20 18:59 06:59 18:59 Intake Total 1000 Output Total 1075 3400 Balance -75 -3400 Intake: Intake, IV Titration 1000 Amount D5-0.45% NaCl with KCl 1000 20Meq/l 1,000 ml @ 125 mls/hr IV .Q8H [facility] Rx#: [id number] Output: Urine 1075 3400 Uretheral (Chung) 1075 1200 Other: Voiding Method Indwelling Catheter Indwelling Catheter # Bowel Movements 0 - Exam PHYSICAL EXAMINATION: GENERAL: The patient is alert and oriented x3, not in any acute distress. Well developed, well nourished. HEENT: Pupils are round and equally reacting to light. EOMI. No scleral icterus. No conjunctival pallor. Normocephalic, atraumatic. No pharyngeal erythema. No thyromegaly. CARDIOVASCULAR: S1 and S2 present. No murmurs, rubs, or gallops. PULMONARY: Chest is clear to auscultation, no wheezing or crackles. ABDOMEN: Soft, nontender, nondistended, normoactive bowel sounds. No palpable organomegaly. Surgical site areas are clean MUSCULOSKELETAL: No joint swelling or deformity. EXTREMITIES: No cyanosis, clubbing, or pedal edema. NEUROLOGICAL: Gross neurological examination did not reveal any focal deficits. SKIN: No rashes. - Labs CBC & Chem 7: 06/05/20 06:25 06/06/20 10:48 Labs: Abnormal Lab Results - Last 24 Hours (Table) 06/06/20 Range/Units 10:48 Sodium 132 L (137-145) mmol/L BUN <2 L (7-17) mg/dL Creatinine 0.51 L (0.52-1.04) mg/dL Glucose 149 H (74-99) mg/dL Assessment and Plan Plan: Status post right colectomy due to right colon cancer 1 hyponatremia: Secondary to D5 half-normal saline which will be discontinued patient is tolerating clear liquid diet very well. Leukocytosis likely reactive. resolved Hypothyroidism History of hernia repair Remote history of nicotine abuse Full code
[2020-06-06] MEDS: KETOROLAC 15 MG/ML 1 ML VIAL IVP SCH ×3 (13:01→23:23)
[2020-06-06] MEDS: METOCLOPRAMIDE 5 MG/ML 2 ML VIAL IVP PRN (18:13)
[2020-06-07] MEDS: KETOROLAC 15 MG/ML 1 ML VIAL IVP SCH ×3 (05:36→20:45)
[2020-06-07] MEDS: LEVOTHYROXINE 100 MCG TAB PO SCH (05:36)
[2020-06-07 06:44] LABS: Basophils % (A) 0 %; Eosinophils % (A) 1 %; HCT 46.4 % (34.0-46.0); Lymphocytes # (A) 0.6 k/uL (1.0-4.8); Lymphocytes % (A) 9 %; MCH 31.5 pg (25.0-35.0); MCHC 32.2 g/dL (31.0-37.0); MCV 97.7 fL (80.0-100.0); Mean Platelet Volume 7.7; Monocytes # (A) 0.8 k/uL (0-1.0); Monocytes % (A) 13 %; Neutrophils # (A) 4.9 k/uL (1.3-7.7); Neutrophils % (A) 75 %; Platelet Count 221 k/uL (150-450); RBC 4.75 m/uL (3.80-5.40); RDW 13.3 % (11.5-15.5); WBC 6.5 k/uL (3.8-10.6)
[2020-06-07 09:45] LABS: African American GFR (CKD) 112.4 (60.0-200.0); Anion Gap 7.3 mmol/L (4.00-12.00); BUN/Creat Ratio 8.33 Ratio (12.00-20.00); Calcium 8.6 mg/dL (8.7-10.3); Carbon Dioxide 29.7 mmol/L (21.6-31.8); Potassium 3.9 mmol/L (3.5-5.5)
[2020-06-07] MEDS: HEPARIN SODIUM,PORCINE 5,000 UNIT/ML 1 ML VIAL SQ SCH ×2 (09:47→17:51)
[2020-06-07] MEDS: ATORVASTATIN 10 MG TAB PO SCH (09:47)
[2020-06-07] MEDS: FAMOTIDINE 20 MG/2 ML VIAL IV SCH (09:47)
--- NOTE | 2020-06-07 10:09 | P.PN ---
<Pao King - Last Filed: 06/07/20 10:05> Subjective Progress Note Date: 06/07/20 CHIEF COMPLAINT: Right colon cancer HISTORY OF PRESENT ILLNESS: Right colon cancer status post right colectomy. Patient is reporting that her abdominal pain is less than yesterday. At times the pain will get up to 5 out of 10. She has had improvement in her pain with the Toradol. She is having bowel movements and passing gas. She is still having some nausea at times but better than yesterday. She reports decrease in her abdominal bloating and distention. She is urinating without difficulty. She is currently on a clear liquid diet. She's afebrile. WBC 6.5 hemoglobin 15.0 PHYSICAL EXAM: VITAL SIGNS: Reviewed. GENERAL: Well-developed in no acute distress. HEENT: No sclera icterus. Extraocular movements grossly intact. Moist buccal mucosa. Head is atraumatic, normocephalic. ABDOMEN: Soft. Decrease in abdominal distention. Incision site clean dry and intact NEUROLOGIC: Alert and oriented. Cranial nerves II through XII grossly intact. ASSESSMENT: 1. Right colon cancer status post right colectomy PLAN: -Advance diet to a full liquid diet -Continue scheduled Toradol to help with pain control -Continue Zofran as needed for nausea -Encourage patient to ambulate -Encourage incentive spirometer use -Path report pending -GI prophylaxis Pepcid and DVT prophylaxis subcu heparin Physician Airline Manager note has been reviewed by physician. Signing provider agrees with the documented findings, assessment, and plan of care. Objective - Vital Signs Vital signs: Vital Signs Temp 97.8 F 06/07/20 08:39 Pulse 105 H 06/07/20 08:39 Resp 18 06/07/20 08:39 BP 161/69 06/07/20 08:39 Pulse Ox 90 L 06/07/20 08:39 Intake & Output 06/06/20 06/07/20 06/07/20 18:59 06:59 18:59 Intake Total 445 Output Total 1701 Balance -1701 445 Intake: Intake, IV Titration 125 Amount D5-0.45% NaCl with KCl 125 20Meq/l 1,000 ml @ 125 mls/hr IV .Q8H [facility] Rx#: [id number] Oral 320 Output: Urine 1700 Stool 1 Other: # Voids 3 2 # Bowel Movements 0 - Labs CBC & Chem 7: 06/07/20 06:18 06/07/20 06:18 Labs: Abnormal Lab Results - Last 24 Hours (Table) 06/06/20 06/07/20 06/07/20 Range/Units 10:48 06:18 06:18 Hct 46.4 H (34.0-46.0) % Lymphocytes # 0.6 L (1.0-4.8) k/uL Sodium 132 L (137-145) mmol/L BUN <2 L 5.0 L (7-17) mg/dL Creatinine 0.51 L (0.52-1.04) mg/dL BUN/Creatinine Ratio 8.33 L (12.00-20.00) Ratio Glucose 149 H 117 H (74-99) mg/dL Calcium 8.6 L (8.7-10.3) mg/dL <Luke Moffett - Last Filed: 06/07/20 11:39> Subjective As above. Patient doing better today. She is having bowel movements. Labs are normal. Pain is improved. Will increase diet. Hopefully discharge tomorrow. Objective - Vital Signs Vital signs: Vital Signs Temp 97.8 F 06/07/20 08:39 Pulse 105 H 06/07/20 08:39 Resp 18 06/07/20 08:39 BP 161/69 06/07/20 08:39 Pulse Ox 90 L 06/07/20 08:39 Intake & Output 06/06/20 06/07/20 06/07/20 18:59 06:59 18:59 Intake Total 445 Output Total 1701 Balance -1701 445 Intake: Intake, IV Titration 125 Amount D5-0.45% NaCl with KCl 125 20Meq/l 1,000 ml @ 125 mls/hr IV .Q8H [facility] Rx#: [id number] Oral 320 Output: Urine 1700 Stool 1 Other: # Voids 3 2 # Bowel Movements 0 - Labs CBC & Chem 7: 06/07/20 06:18 06/07/20 06:18 Labs: Abnormal Lab Results - Last 24 Hours (Table) 06/07/20 06/07/20 Range/Units 06:18 06:18 Hct 46.4 H (34.0-46.0) % Lymphocytes # 0.6 L (1.0-4.8) k/uL BUN 5.0 L (9.0-27.0) mg/dL BUN/Creatinine Ratio 8.33 L (12.00-20.00) Ratio Glucose 117 H (70-110) mg/dL Calcium 8.6 L (8.7-10.3) mg/dL
--- NOTE | 2020-06-07 12:55 | P.PN ---
Subjective Progress Note Date: 06/07/20 s/p rt colectomy Patient is a 64-year-old female was admitted to hospital after right colectomy for right colon cancer. 06/04/20 Patient is currently resting in the bed comfortably. No complaints of chest pain or shortness breath. Able to use incentive spirometry. Patient does have minimal flatus. No bowel media. Currently nothing by mouth. Patient has been afebrile. Patient does have nausea. No episodes of vomiting. 06/05/2020 Patient is currently resting in bed comfortably. No complaints of chest pain or shortness of. Pain is controlled and epidural is being removed today. No nausea vomiting or diarrhea. Patient is passing flatus and was started on clear liquid diet. Increase incentive spirometry and ambulation. 06/06/2020 Patient pain is better controlled patient was started on nonsteroidal anti- intermittent medications. Patient is on D5 half-normal saline because of which patient became hypernatremic D5 half-normal saline will be discontinued patient is tolerating clear liquid diet well patient is passing gas did not move her bowel yet. 06/07/2020 Patient is seen and evaluated and follow-up and has been tolerating clear liquids and states she is passing gas and had a bowel movement this morning. Patient continues to have some mild abdominal discomfort although states it has improved from yesterday and some of the swelling and bloating appears to have improved as well. Patient is up and getting to the bathroom with standby assistance. Sodium has improved and is 137 today, potassium is 3.9, current creatinine is 0.6. IV fluids discontinued. Instructed the patient to continue to increase activity as tolerated and continue with the use of the incentive spi rometer at least 10 times every hour while awake. Review of systems: Constitutional: No reports of fatigue, fever, or chills Cardiovascular: No reports of chest pain or palpitations Respiratory: No reports of shortness of breath or cough GI: No reports of nausea, vomiting, or diarrhea : No reports of dysuria or retention Neurovascular: Reports mild weakness with gait All medications have been reviewed Objective - Vital Signs Vital signs: Vital Signs Temp 97.8 F 06/07/20 08:39 Pulse 105 H 06/07/20 08:39 Resp 18 06/07/20 08:39 BP 161/69 06/07/20 08:39 Pulse Ox 90 L 12/08/20 08:39 Intake & Output 06/06/20 06/07/20 06/07/20 18:59 06:59 18:59 Intake Total 445 Output Total 1701 Balance -1701 445 Intake: Intake, IV Titration 125 Amount D5-0.45% NaCl with KCl 125 20Meq/l 1,000 ml @ 125 mls/hr IV .Q8H [facility] Rx#: [id number] Oral 320 Output: Urine 1700 Stool 1 Other: # Voids 3 2 # Bowel Movements 0 - Exam GENERAL: The patient is alert and oriented x3, not in any acute distress. Well developed, well nourished. HEENT: Pupils are round and equally reacting to light. EOMI. No scleral icterus. No conjunctival pallor. Normocephalic, atraumatic. No pharyngeal erythema. No thyromegaly. CARDIOVASCULAR: S1 and S2 present. No murmurs, rubs, or gallops. PULMONARY: Chest is clear to auscultation, no wheezing or crackles. ABDOMEN: Soft, nontender, nondistended, normoactive bowel sounds. No palpable organomegaly. Surgical site areas are clean MUSCULOSKELETAL: No joint swelling or deformity. EXTREMITIES: No cyanosis, clubbing, or pedal edema. NEUROLOGICAL: Gross neurological examination did not reveal any focal deficits. SKIN: No rashes. - Labs CBC & Chem 7: 06/07/20 06:18 06/07/20 06:18 Labs: Abnormal Lab Results - Last 24 Hours (Table) 06/06/20 06/07/20 06/07/20 Range/Units 10:48 06:18 06:18 Hct 46.4 H (34.0-46.0) % Lymphocytes # 0.6 L (1.0-4.8) k/uL Sodium 132 L (137-145) mmol/L BUN <2 L 5.0 L (7-17) mg/dL Creatinine 0.51 L (0.52-1.04) mg/dL BUN/Creatinine Ratio 8.33 L (12.00-20.00) Ratio Glucose 149 H 117 H (74-99) mg/dL Calcium 8.6 L (8.7-10.3) mg/dL Assessment and Plan Assessment: Status post right colectomy due to right colon cancer hyponatremia: Secondary to D5 half-normal saline, IV fluids discontinued, resolved. current sodium is 137 Leukocytosis likely reactive. resolved Hypothyroidism History of hernia repair Remote history of nicotine abuse Full code Plan: Continue with current medications. Discussed with the patient about increasing activity as tolerated and continue with the use of the incentive spirometer. Repeat labs within normal limits. Diet is being advanced as patient was tolerating clear liquids with no reports of nausea or vomiting noted. IV fluids have been discontinued. Patient is having gas and had a bowel movement this mor hector and urinating with no difficulties. Will repeat a.m. labs and continue to monitor and follow along with surgery. Further recommendations to follow. Possible discharge in 24 hours.
[2020-06-07 14:50] VITALS: BMI 23.1
[2020-06-07] MEDS ORDERED: traMADol 50 MG TAB PO PRN (18:50)
[2020-06-07] MEDS: FAMOTIDINE 20 MG TAB PO SCH (20:45)
[2020-06-08 01:35] VITALS: RESP 16
[2020-06-08] MEDS: HEPARIN SODIUM,PORCINE 5,000 UNIT/ML 1 ML VIAL SQ SCH ×3 (01:37→13:48)
[2020-06-08] MEDS: KETOROLAC 15 MG/ML 1 ML VIAL IVP SCH ×3 (04:21→13:47)
[2020-06-08] MEDS: LEVOTHYROXINE 100 MCG TAB PO SCH (05:31)
[2020-06-08 05:45] LABS: Basophils % (A) 0 %; Eosinophils # (A) 0.1 k/uL (0-0.7); Eosinophils % (A) 2 %; HCT 42.4 % (34.0-46.0); HGB 14.6 gm/dL (11.4-16.0); Lymphocytes # (A) 0.7 k/uL (1.0-4.8); Lymphocytes % (A) 12 %; MCH 33.6 pg (25.0-35.0); MCHC 34.4 g/dL (31.0-37.0); MCV 97.6 fL (80.0-100.0); Mean Platelet Volume 7.8; Monocytes # (A) 0.9 k/uL (0-1.0); Monocytes % (A) 14 %; Neutrophils # (A) 4.3 k/uL (1.3-7.7); Neutrophils % (A) 70 %; Platelet Count 212 k/uL (150-450); RBC 4.35 m/uL (3.80-5.40); RDW 12.7 % (11.5-15.5); WBC 6.2 k/uL (3.8-10.6)
[2020-06-08 08:58] VITALS: BP 163/94; PULSE 78; TEMP 97.9
[2020-06-08] MEDS: ATORVASTATIN 10 MG TAB PO SCH (09:10)
[2020-06-08] MEDS: FAMOTIDINE 20 MG TAB PO SCH (09:10)
[2020-06-08 11:22] LABS: African American GFR (CKD) 106.9 (60.0-200.0); Anion Gap 4.3 mmol/L (4.00-12.00); Calcium 8.8 mg/dL (8.7-10.3); Carbon Dioxide 29.7 mmol/L (21.6-31.8); Non-African American GFR(CKD) 92.2 (60.0-200.0); Potassium 3.9 mmol/L (3.5-5.5)
--- NOTE | 2020-06-08 11:47 | P.DS ---
<Pao King - Last Filed: 06/08/20 11:44> Providers Expected date of discharge: 06/08/20 Hospital Course: Discharge diagnosis 1. Right colon cancer status post right colectomy Hospital course This is a 64-year-old female with known history of right colon cancer. She is status post right colectomy. Patient tolerated surgery well. Pain is controlled. She's afebrile. She is having bowel movements. She has been up and ambulating. She is tolerating diet. Patient is stable for discharge home. Please refer to chart for any further details. Physician Waitstaff Captain note has been reviewed by physician. Signing provider agrees with the documented findings, assessment, and plan of care. Patient Condition at Discharge: Stable Plan - Discharge Summary Discharge Rx Participant: Yes New Discharge Prescriptions: New traMADol HCL [Ultram] 50 mg PO Q6HR PRN 3 Days #12 tab PRN Reason: Pain Continue Levothyroxine Sodium [Synthroid] 100 mcg PO QAM Ergocalciferol [Vitamin D2 (DRISDOL)] 50,000 unit PO Q7D Atorvastatin [Lipitor] 10 mg PO DAILY Discharge Medication List Atorvastatin [Lipitor] 10 mg PO DAILY 05/27/20 [History] Ergocalciferol [Vitamin D2 (DRISDOL)] 50,000 unit PO Q7D 05/27/20 [History] Levothyroxine Sodium [Synthroid] 100 mcg PO QAM 05/27/20 [History] traMADol HCL [Ultram] 50 mg PO Q6HR PRN 3 Days #12 tab 06/08/20 [Rx] Follow up Appointment(s)/Referral(s): Luke Moffett MD [Medical Doctor] - 06/15/20 3:45 pm Yolie Moffett MD [Primary Care Provider] - 1 Week (office closed for lunch, please call to make hospital follow up appointment) Patient Instructions/Handouts: Colectomy (DC), Colectomy (GEN), Colectomy Diet (ED) Activity/Diet/Wound Care/Special Instructions: No driving while taking Ultram No lifting over 10 pounds You may shower. No soaking or tub baths for 2 weeks Very light activity until you are reevaluated at your follow up appointment with your surgeon Discharge Disposition: HOME SELF-CARE <Luke Moffett - Last Filed: 06/08/20 17:20> Providers Date of admission: 06/02/20 10:49 Attending physician: Luke Moffett Consults: 06/02/20 15:17 Consult Physician Routine Consulting Provider: Steven Da Silva Consult Reason/Comments: medical managementmed mgmt Do you want consulting provider notified?: Yes Primary care physician: Yolie Moffett Hospital Course: As above. Patient doing well Today. She is toleratin her diet. Having bowel movements. May discharge
--- NOTE | 2020-06-08 12:42 | P.PN ---
Subjective Progress Note Date: 06/08/20 s/p rt colectomy Patient is a 64-year-old female was admitted to hospital after right colectomy for right colon cancer. 06/04/20 Patient is currently resting in the bed comfortably. No complaints of chest pain or shortness breath. Able to use incentive spirometry. Patient does have minimal flatus. No bowel media. Currently nothing by mouth. Patient has been afebrile. Patient does have nausea. No episodes of vomiting. 06/05/2020 Patient is currently resting in bed comfortably. No complaints of chest pain or shortness of. Pain is controlled and epidural is being removed today. No nausea vomiting or diarrhea. Patient is passing flatus and was started on clear liquid diet. Increase incentive spirometry and ambulation. 06/06/2020 Patient pain is better controlled patient was started on nonsteroidal anti- intermittent medications. Patient is on D5 half-normal saline because of which patient became hypernatremic D5 half-normal saline will be discontinued patient is tolerating clear liquid diet well patient is passing gas did not move her bowel yet. 06/07/2020 Patient is seen and evaluated and follow-up and has been tolerating clear liquids and states she is passing gas and had a bowel movement this morning. Patient continues to have some mild abdominal discomfort although states it has improved from yesterday and some of the swelling and bloating appears to have improved as well. Patient is up and getting to the bathroom with standby assistance. Sodium has improved and is 137 today, potassium is 3.9, current creatinine is 0.6. IV fluids discontinued. Instructed the patient to continue to increase activity as tolerated and continue with the use of the incentive spi rometer at least 10 times every hour while awake. 06/08/2020 Patient is seen in follow-up and tolerating diet and has been advanced to full liquids. No acute overnight issues noted. Patient states her abdominal discomfort has resolved and she feels much better. Has been up with no issues and has been voiding and has had bowel movements. Patient continues to use her incentive spirometer and instructed to continue using at home at least 10 times every hour while awake. Sodium is 136 with a potassium of 3.9 and current creatinine is 0.7. Review of systems: Constitutional: No reports of fatigue, fever, or chills Cardiovascular: No reports of chest pain or palpitations Respiratory: No reports of shortness of breath or cough GI: No reports of nausea, vomiting, or diarrhea : No reports of dysuria or retention Neurovascular: No reports of weakness or numbness All medications have been reviewed Objective - Vital Signs Vital signs: Vital Signs Temp 97.9 F 06/08/20 08:50 Pulse 78 06/08/20 08:50 Resp 16 06/08/20 08:50 BP 163/94 06/08/20 08:50 Pulse Ox 93 L 06/08/20 08:50 Intake & Output 06/07/20 06/08/20 06/08/20 18:59 06:59 18:59 Weight 61 kg Other: Voiding Method Toilet # Voids 1 # Bowel Movements 2 2 - Exam GENERAL: The patient is alert and oriented x3, not in any acute distress. Well developed, well nourished. HEENT: Pupils are round and equally reacting to light. EOMI. No scleral icterus. No conjunctival pallor. Normocephalic, atraumatic. No pharyngeal erythema. No thyromegaly. CARDIOVASCULAR: S1 and S2 present. No murmurs, rubs, or gallops. PULMONARY: Chest is clear to auscultation, no wheezing or crackles. ABDOMEN: Soft, nontender, nondistended, normoactive bowel sounds. No palpable organomegaly. Surgical site areas are clean MUSCULOSKELETAL: No joint swelling or deformity. EXTREMITIES: No cyanosis, clubbing, or pedal edema. NEUROLOGICAL: Gross neurological examination did not reveal any focal deficits. SKIN: No rashes. - Labs CBC & Chem 7: 06/08/20 04:43 06/08/20 04:43 Labs: Abnormal Lab Results - Last 24 Hours (Table) 06/08/20 06/08/20 Range/Units 04:43 04:43 Lymphocytes # 0.7 L (1.0-4.8) k/uL BUN 7.0 L (9.0-27.0) mg/dL BUN/Creatinine Ratio 10.00 L (12.00-20.00) Ratio Assessment and Plan Assessment: Status post right colectomy due to right colon cancer hyponatremia: Secondary to D5 half-normal saline, IV fluids discontinued, resolved. current sodium is 136 Leukocytosis likely reactive. resolved Hypothyroidism History of hernia repair Remote history of nicotine abuse Full code Plan: Continue with current medications. Discussed with the patient about increasing activity as tolerated and continue with the use of the incentive spirometer. Repeat labs within normal limits. Diet continues to be advanced as patient was tolerating with no reports of nausea or vomiting noted. Patient is having gas and had a bowel movement this morning and urinating with no difficulties. Continue to follow along with surgery during hospitalization. Further recommendations to follow. Patient states she is being discharged today.
== END 2020-06-08 14:00 | disposition home or self-care (01) | DRG 330 ==
LOC: 2ORMAIN 10:49 → 5NMEDONC 15:18
PROVIDERS: ADMIT Surgery; ATTEND Surgery
PROC: 0DTF0ZZ Resection of Right Large Intestine, Open Approach (ICD-10-PCS; principal; 2020-06-02 12:30)
DX: C18.2 Malignant neoplasm of ascending colon (principal); E87.1 Hypo-osmolality and hyponatremia; L29.9 Pruritus, unspecified; D72.829 Elevated white blood cell count, unspecified; E03.9 Hypothyroidism, unspecified; Z79.890 Hormone replacement therapy; Z79.899 Other long term (current) drug therapy; Z87.891 Personal history of nicotine dependence; Z80.3 Family history of malignant neoplasm of breast
CPT/HCPCS: 80048; 81001; 85025; 86850; 86900; 86901; 87086; 88309

== ENCOUNTER → 2020-06-21 | Outpatient (CLI) | payer BC ==
--- NOTE | 2020-06-21 14:18 | US ---
EXAMINATION TYPE: US thyroid st tissue head/neck DATE OF EXAM: 06/21/2020 COMPARISON: NONE CLINICAL HISTORY: R93.89 Abnormal findings on diagnostic imaging. Left thyroid nodule seen on recent PET scan, patient on thyroid meds GLAND SIZE: Right Lobe: 3.1 x 1.1 x 1.1 cm Overall Parenchyma: homogenous Left Lobe: 3.3 x 1.8 x 1.2 cm Overall Parenchyma: homogeneous Isthmus Thickness: 0.2 cm NODULES RIGHT: # of nodules measured on right: 0 LEFT: # of nodules measured on left: 1 1. 1.8 X 1.6 x 1.0 cm inferior pole solid or almost completely solid, hyperechoic nodule, which is taller than wide, with smooth margins, without echogenic foci. Prior size: no previous ISTHMUS: # of nodules measured in the isthmus: 0 Bilateral neck scanned, no evidence of lymphadenopathy. IMPRESSION: Due to the hypermetabolic uptake on PET/CT, consider biopsy rather than follow-up in one year 2017 ACR TI-RADS LEVEL: TR 3 *Highest TI-RADS level nodule reported
== END | disposition home or self-care (01) ==
LOC: RADUSWWP 13:13
PROVIDERS: ATTEND Family Medicine
DX: R93.89 Abnormal findings on diagnostic imaging of other specified body structures (principal)
CPT/HCPCS: 76536

== ENCOUNTER → 2020-07-18 | Outpatient (CLI) | payer BC ==
--- NOTE | 2020-07-19 08:33 | MR ---
EXAMINATION TYPE: MR abdomen wo/w con DATE OF EXAM: 07/18/2020 COMPARISON: CT abdomen and pelvis May 06, 2020. PET CT May 20, 2020 HISTORY: Hx of colon ca with liver lesion, abnormal CT. CONTRAST: Standard multiplanar, multisequence MRI departmental protocol utilizing 6 mL intravenous Gadavist vladislav olinium contrast. Imaging is performed of the abdomen focusing on the liver. FINDINGS: Liver: Liver remains normal in size. Corresponding to area of concern anterior left hepatic dome with negative PET CT there is no concerning solid or cystic mass at this level. Finding likely reflects s ome focal fatty infiltration and/or volume averaging near the diaphragmatic surface, it is in close p roximity to the interlobar fissure, common place for fatty infiltration. Remainder of liver shows no concerning solid or cystic mass. There is a geographic area of increased density on delayed postcontr ast imaging in the right hepatic lobe consistent with transient hepatic attenuation differences there are crossing vessels noted. This area is also isointense on T1 and T2-weighted images. Other: Lung bases are grossly clear. The spleen, pancreas, and both adrenal glands are unremarkable. There is subcentimeter thin-walled cyst medially lower pole left kidney. Similar subcentimeter thin-w alled cyst laterally midpole right kidney coronal image 10 series 301 noted. Persistent right-sided e xtrarenal pelvis without calyceal dilatation. No left-sided hydronephrosis. No intra-abdominal ascite s. No bowel obstruction. Colonic mass or neoplasm a level of cecum less well seen on MRI versus CT. S light underlying scoliotic curvature. Contracted gallbladder noted. No abdominal aortic aneurysm. IMPRESSION: No worrisome intrahepatic mass identified.
== END | disposition home or self-care (01) ==
LOC: RADMRIMAIN 11:13
PROVIDERS: ATTEND Internal Medicine Hematology & Oncology
DX: C18.2 Malignant neoplasm of ascending colon (principal)
CPT/HCPCS: 74183; A9585

== ENCOUNTER 2020-07-20 12:07 | Day surgery (SDC) | payer BC ==
[2020-07-20 14:58] VITALS: RESP 16; TEMP 97.8
[2020-07-20 15:30] VITALS: BP 167/81; PULSE 76
--- NOTE | 2020-07-20 15:49 | US ---
EXAMINATION TYPE: US FNA thyroid first lesion DATE OF EXAM: 07/20/2020 COMPARISON: NONE HISTORY: Thyroid nodule. Maximal barrier technique was utilized. After informed consent, skin overlying the lobe thyroid nodu le was localized with ultrasound and the overlying skin prepped and draped. Ultrasound was utilized u sing sterile technique. Lidocaine was used for local anesthesia. Five passes with a 25-gauge needle were made into the nodule and aspirated specimen was submitted to cytology. Following the procedure hemostasis achieved. No immediate complication. The patient discharged in stable condition. IMPRESSION: STATUS POST ULTRASOUND GUIDED FINE NEEDLE ASPIRATION OF THYROID NODULE, PATHOLOGY IS PEND ING. THIS PROCEDURE WAS PERFORMED BY THE UNDERSIGNED.
== END 2020-07-20 15:22 | disposition home or self-care (01) ==
LOC: RADPROMAIN 12:07
PROVIDERS: ATTEND Family Medicine
DX: E04.1 Nontoxic single thyroid nodule (principal)
CPT/HCPCS: 10005; 88173; 88305

== ENCOUNTER → 2020-09-01 | Outpatient (CLI) | payer BC ==
--- NOTE | 2020-09-01 14:19 | MM ---
Reason for exam: screening (asymptomatic). Last mammogram was performed 3 years and 10 months ago. History: Patient is postmenopausal. Family history of breast cancer in mother at age 71 and breast cancer in maternal aunt. Benign right mammotome panel of the right breast, October 04, 2010. Benign right US cyst aspiration of the right breast, October 04, 2010. Physical Findings: A clinical breast exam by your physician is recommended on an annual basis and results should be correlated with mammographic findings. MG Screening Mammo w CAD Bilateral CC and MLO view(s) were taken. Prior study comparison: October 22, 2016, bilateral MG screening mammo w CAD. September 21, 2013, bilateral digital screening mammo w/CAD. The breast tissue is heterogeneously dense. This may lower the sensitivity of mammography. Previous mammotome biopsy in the right breast x 2. There is no discrete abnormality. ASSESSMENT: Benign, BI-RAD 2 RECOMMENDATION: Routine screening mammogram of both breasts in 1 year.
== END | disposition home or self-care (01) ==
LOC: RADMAMWWP 10:11
PROVIDERS: ATTEND Family Medicine
DX: Z12.31 Encounter for screening mammogram for malignant neoplasm of breast (principal)
CPT/HCPCS: 77067

== ENCOUNTER → 2021-07-24 | Outpatient (CLI) | payer MEDICARE, BC ==
--- NOTE | 2021-07-24 11:22 | CT ---
EXAMINATION TYPE: CT ChestAbdPelvis w con DATE OF EXAM: 07/24/2021 COMPARISON: 05/20/2020 HISTORY: 65-year-old female C18.2, follow up colon cancer TECHNIQUE: Contiguous axial scanning of the chest, abdomen, and pelvis performed with IV Contrast, pa tient injected with 100 mL of Isovue 300. Delayed images through the kidneys were obtained. Coronal/s agittal reconstructions performed. CT DLP: 449.1 mGycm Automated exposure control for dose reduction was used. FINDINGS: CHEST: The heart is normal size without pericardial effusion. Borderline ectatic ascending aorta 3.5 cm. Conventional arch vessel branching anatomy. Unchanged nodule lower pole of the left thyroid lobe. We note previous biopsy. No thoracic lymphadenopathy by CT size criteria. There may be a tiny emphysematous cyst in the left midlung, axial image 23. No consolidation or pleur al effusion. ABDOMEN: The portal venous system is patent. Small amount of focal fat along the anterior falciform ligament. Otherwise, no focal liver lesion seen. No biliary ductal dilatation. Adrenal glands, spleen, and pancreas show no gross abnormal body. A few small cortical cysts within both kidneys measuring up to 8 mm. Unchanged extrarenal pelvis righ t kidney. Mild atherosclerotic calcifications infrarenal abdominal aorta and common iliac arteries. No dilated small bowel, free fluid, or free air. No mesenteric or retroperitoneal lymphadenopathy. Postsurgical change along the portion of the right side of the colon likely with ileocolonic reanasto mosis at the upper ascending colon. Oral contrast progressed to the distal third transverse colon. Th ere is mild overall stool burden. Left-sided colonic diverticulosis. No pericolic inflammatory change . PELVIS: Bladder urine distended. Pelvic phlebolith. Uterus is anteverted. Both ovaries are visualized. No abn ormal fluid collection in the pelvis or pelvic lymphadenopathy. BONES: Osteitis pubis. Bilateral L5 pars defects with degenerative grade 1, nearly grade 2 anterolisthesis L 5-S1. Moderate to advanced degenerative disc disease L4-L5 and L5-S1. Mild to moderate degenerative d isc disease mid to lower thoracic spine. No osseous destructive process. IMPRESSION: 1. INTERVAL SURGERY ALONG THE RIGHT SIDE OF THE COLON. NO RECURRENT OR METASTATIC DISEASE IS IDENTIFI ED. 2. MINIMAL EMPHYSEMATOUS CHANGE. 3. BILATERAL L5 PARS DEFECTS WITH A GRADE 1, NEARLY GRADE 2 ANTEROLISTHESIS AT L5-S1.
== END | disposition home or self-care (01) ==
LOC: RADCTMAIN 08:41
PROVIDERS: ATTEND Internal Medicine Hematology & Oncology
DX: Z08 Encounter for follow-up examination after completed treatment for malignant neoplasm (principal); J43.9 Emphysema, unspecified; Z85.038 Personal history of other malignant neoplasm of large intestine
CPT/HCPCS: 71260; 74177; Q9967

== ENCOUNTER → 2022-02-27 | Outpatient (CLI) | payer MEDICARE, BC ==
--- NOTE | 2022-02-28 07:40 | MM ---
Reason for Exam: Screening (asymptomatic). Last mammogram was performed 1 year(s) and 5 month(s) ago. Patient History: Menarche at age 15. First Full-Term at age 26. Postmenopausal. 10/04/2010, Benign Core Biopsy on the right side. 10/04/2010, Benign Cyst Aspiration on the right side. Maternal aunt had breast cancer. Mother had breast cancer, age 71. Risk Values: Ara 5 year model risk: 3.5%. NCI Lifetime model risk: 12.8%. Prior Study Comparison: 09/21/2013 Bilateral Screening Mammogram, [facility]. 10/22/2016 Bilateral Screening Mammogram, [facility]. 09/01/2020 Bilateral Screening Mammogram, [facility]. Tissue Density: The breast tissue is heterogeneously dense. This may lower the sensitivity of mammography. Findings: Analyzed By CAD. There is no suspicious group of microcalcifications or new suspicious mass in either breast. Overall Assessment: Negative, BI-RAD 1 Management: Screening Mammogram of both breasts in 1 year. A clinical breast exam by your physician is recommended on an annual basis and results should be correlated with mammographic findings. Electronically signed and approved by: Espinoza Farrell M.D. Radiologis
== END | disposition home or self-care (01) ==
LOC: RADMAMWWP 08:05
PROVIDERS: ATTEND Family Medicine
DX: Z12.31 Encounter for screening mammogram for malignant neoplasm of breast (principal); Z78.0 Asymptomatic menopausal state; Z80.3 Family history of malignant neoplasm of breast
CPT/HCPCS: 77063; 77067

== ENCOUNTER → 2022-10-01 | Outpatient (CLI) | payer MEDICARE, BC ==
[2022-10-01 12:35] LABS: African American GFR (CKD) >90 (>60 ml/min/1.73 sqM); Blood Urea Nitrogen 11 mg/dL (7-17); Non-African American GFR(CKD) >90 (>60 ml/min/1.73 sqM)
--- NOTE | 2022-10-01 16:17 | CT ---
EXAMINATION TYPE: CT ChestAbdPelvis w con DATE OF EXAM: 10/01/2022 COMPARISON: 07/24/2021, PET/CT 05/20/2020. HISTORY: 67-year-old female C18.2, Z03.89, Follow up colon cancer TECHNIQUE: Contiguous axial scanning of the chest, abdomen, and pelvis performed with IV Contrast, pa tient injected with 100 mL of Isovue 300. Delayed images through the kidneys were obtained. Coronal/s agittal reconstructions performed. CT DLP: 535.0 mGycm Automated exposure control for dose reduction was used. FINDINGS: CHEST: Unchanged asymmetric prominence to the left lobe of the thyroid gland. Heart normal size without pericardial effusion. Aorta normal caliber with conventional vessel branching anatomy. No thoracic lymphadenopathy by CT si ze criteria. Lungs show no evidence of consolidation or pleural effusion. ABDOMEN: No focal liver lesion or biliary ductal dilatation. Portal venous system is patent. Gallbladder, adrenal glands, spleen with posterior splenule, and pancreas within normal limits. Bilateral extra renal pelves. 7 mm benign renal cortical cyst lateral right kidney. No dilated small bowel, free fluid, or free air. No mesenteric or retroperitoneal lymphadenopathy. Duplex right renal arteries. Redemonstrated partial right hemicolectomy with ileocolonic anastomosis. No abnormal soft tissue in t his region. PELVIS: Bladder prominently distended. Mild pelvic floor relaxation. Uterus anteverted. Both ovaries are visu alized. No abnormal fluid collection in the pelvis or pelvic lymphadenopathy. Some asymmetry of the p erineum is unchanged in appearance compared to the PET/CT of 05/20/2020. No abnormal fluid collection in the pelvis or pelvic lymphadenopathy. BONES: Mild degenerative change of the hips. Moderate degenerative disc disease lower thoracic spine and mo derate to advanced lumbar spine. Redemonstrated bilateral L5 pars defects with grade 1, nearly grade 2 anterolisthesis at L5-S1. No osseous destructive process. IMPRESSION: 1. REDEMONSTRATED PARTIAL RIGHT HEMICOLECTOMY. NO EVIDENCE FOR RECURRENT OR METASTATIC DISEASE. 2. REDEMONSTRATED GRADE 1, NEARLY GRADE 2 ANTEROLISTHESIS AT L5-S1 SECONDARY TO BILATERAL L5 SPONDYLO LYSIS.
== END | disposition home or self-care (01) ==
LOC: RADCTMAIN 11:55
PROVIDERS: ATTEND Internal Medicine Hematology & Oncology
DX: Z03.89 Encounter for observation for other suspected diseases and conditions ruled out (principal); C18.2 Malignant neoplasm of ascending colon; M43.17 Spondylolisthesis, lumbosacral region; M47.816 Spondylosis without myelopathy or radiculopathy, lumbar region; Z90.49 Acquired absence of other specified parts of digestive tract
CPT/HCPCS: 82565; 84520; 71260; 74177; Q9967

== ENCOUNTER → 2023-04-08 | Outpatient (CLI) | payer MEDICARE, BC ==
[2023-04-08 10:02] LABS: African American GFR (CKD) >90 (>60 ml/min/1.73 sqM); Blood Urea Nitrogen 12 mg/dL (7-17); Non-African American GFR(CKD) >90 (>60 ml/min/1.73 sqM)
--- NOTE | 2023-04-08 12:01 | CT ---
EXAMINATION TYPE: CT ChestAbdPelvis w con CT DLP: 602.1 mGycm, Automated exposure control for dose reduction was used. DATE OF EXAM: 04/08/2023 11:42 AM COMPARISON: CT chest abdomen pelvis 10/01/2022, 07/24/2021. CLINICAL INDICATION:Female, 67 years old with history of C18.2; PHH, h/o colon CA Technique: Multiple axial images of the chest, abdomen, and pelvis were obtained following the intrav enous administration of 100 mL Isovue-300. 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 Two-dimensional coronal and sa gittal reconstructions were obtained. Findings: CHEST: LUNGS/ PLEURA: No pleural effusion, pneumothorax, focal consolidation. No suspicious pulmonary nodule s or masses. Fat filled left Bochdalek hernia. AIRWAY: Patent and unremarkable.. HEART: Size within normal limits. No pericardial effusion. MEDIASTINUM: No evidence of adenopathy. VASCULATURE: No aortic aneurysm. MUSCULOSKELETAL: No acute osseous abnormalities. SOFT TISSUES/LYMPH NODES: Unremarkable. LOWER NECK: Unchanged prominence of the left thyroid lobe. ABDOMEN: ABDOMEN LIVER: Unremarkable GALLBLADDER AND BILE DUCTS: Unremarkable. PANCREAS: Unremarkable. SPLEEN: Unremarkable. ADRENAL GLANDS: Unremarkable. KIDNEYS AND URETERS: No evidence of hydronephrosis or renal calculus. The kidneys enhance symmetrical ly. Bilateral extrarenal pelvises. Stable right renal 7 mm cortical cyst. Contrast is demonstrated wi thin both collecting systems on the delayed phase. PELVIS BLADDER: Unremarkable REPRODUCTIVE: Mild pelvic floor relaxation. Uterus is anteverted. ABDOMEN & PELVIS STOMACH AND BOWEL: Stomach and duodenum are unremarkable. Enteric contrast reaches the rectum. Redemo nstration partial right hemicolectomy with ileocolonic anastomosis. No abnormal soft tissue in this r egion. No evidence of bowel obstruction. PERITONEUM: No evidence of pneumoperitoneum or free fluid. VASCULATURE: Moderate atherosclerotic calcifications are present throughout the abdominal aorta and i ts branches. No abdominal aortic aneurysm. MUSCULOSKELETAL: No acute osseous abnormalities. Redemonstration of bilateral pars defects with grade 1 anterolisthesis, nearly grade 2 of L5 and S1. No aggressive osseous lesion. Moderate degenerative changes of the thoracic lumbar spine. Mild degenerative changes of both hips. LYMPH NODES: No evidence for lymphadenopathy. SOFT TISSUE/ABDOMINAL WALL: Unremarkable IMPRESSION: 1. Postsurgical changes from partial right hemicolectomy without evidence for local recurrence or me tastasis. 2. Redemonstration of grade 1, nearly grade 2 anterolisthesis of L5 on S1 with bilateral pars defect s.
== END | disposition home or self-care (01) ==
LOC: RADCTMAIN 09:12
PROVIDERS: ATTEND Internal Medicine Hematology & Oncology
DX: Z03.89 Encounter for observation for other suspected diseases and conditions ruled out (principal); C18.2 Malignant neoplasm of ascending colon; M43.17 Spondylolisthesis, lumbosacral region; Z90.49 Acquired absence of other specified parts of digestive tract
CPT/HCPCS: 82565; 84520; 71260; 74177; 36415; Q9967

== ENCOUNTER → 2023-09-20 | Outpatient (CLI) | payer MEDICARE, BC ==
--- NOTE | 2023-09-20 08:19 | USB ---
Reason for Exam: Clinical finding. Patient History: Menarche at age 15. First Full-Term at age 26. Postmenopausal. Patient has history of breast feeding. 10/04/2010, Benign Core Biopsy on the right side. 10/04/2010, Benign Cyst Aspiration on the right side. Maternal aunt had breast cancer. Mother had breast cancer, age 71. Risk Values: Ara 5 year model risk: 3.6%. NCI Lifetime model risk: 11.9%. Technique: Method: Targeted. Prior Study Comparison: 09/01/2020 Bilateral Screening Mammogram, [facility]. 02/27/2022 Bilateral MG 3D screening mammo w/cad, [facility]. 04/10/2023 Bilateral MG 3D screening mammo w/cad, [facility]. Findings: The area of palpable concern of the left breast, the axilla of the left breast and the retroareolar of the left breast were scanned. Technique utilized:US breast limited LT Image; Ultrasound imaging of: All 4 quadrants, the retroareolar region and axilla. Heterogenous lesion at 9:00 5 cm from the nipple correlates with palpable abnormality. Findings could represent mass versus complicated cyst versus other etiologies such as infectious/inflammatory processes. This is located exactly 1 mm from the skin surface. Consider dermatologic evaluation with punch biopsy versus short-term follow-up. If the finding persists consider biopsy at that time. Overall Assessment: Probably benign, BI-RAD 3 Management: Diagnostic Breast Ultrasound of the left breast in 1 month. A clinical breast exam by your physician is recommended on an annual basis and results should be correlated with mammographic findings. This exam should not preclude additional follow-up of suspicious palpable abnormalities. Results were given to the patient verbally at the time of exam. Electronically signed and approved by: Deo Lee DO
== END | disposition home or self-care (01) ==
LOC: RADMAMWWP 07:04
PROVIDERS: ATTEND Family Medicine
DX: N63.20 Unspecified lump in the left breast, unspecified quadrant (principal); Z78.0 Asymptomatic menopausal state; Z80.3 Family history of malignant neoplasm of breast
CPT/HCPCS: 77065; 76642; G0279; 77061

== ENCOUNTER → 2023-10-28 | Outpatient (CLI) | payer MEDICARE, BC ==
--- NOTE | 2023-10-28 10:14 | USB ---
Reason for Exam: Additional evaluation requested from abnormal screening. Patient History: Menarche at age 15. First Full-Term at age 26. Postmenopausal. Patient has history of breast feeding. 10/04/2010, Benign Core Biopsy on the right side. 10/04/2010, Benign Cyst Aspiration on the right side. Maternal aunt had breast cancer. Mother had breast cancer, age 71. Risk Values: Ara 5 year model risk: 3.6%. NCI Lifetime model risk: 11.9%. Technique: Method: Targeted. Doppler: Color. Patient Position: Supine. Prior Study Comparison: 02/27/2022 Bilateral MG 3D screening mammo w/cad, [facility]. 04/10/2023 Bilateral MG 3D screening mammo w/cad, [facility]. 09/20/2023 Left MG 3D diag mammo w/cad LT, [facility]. 09/20/2023 Left US breast limited LT, [facility]. Findings: The area of palpable concern of the left breast, the axilla of the left breast and the retroareolar of the left breast were scanned. Technique utilized:US breast workup limited LT Image; Ultrasound imaging of: Area of concern, retroareolar region and axilla. There is thought to be decrease in size of the lesion at 9:00 now measuring up to 4 mm in thickness previously 5 and extending 9 mm in length which is similar to prior given differences in technique. Continued follow-up with ultrasound in 3 months recommended. Overall Assessment: Probably benign, BI-RAD 3 Management: Diagnostic Breast Ultrasound of the left breast in 3 months. A clinical breast exam by your physician is recommended on an annual basis and results should be correlated with mammographic findings. This exam should not preclude additional follow-up of suspicious palpable abnormalities. Results were given to the patient verbally at the time of exam. Electronically signed and approved by: Deo Lee DO
== END | disposition home or self-care (01) ==
LOC: RADUSWWP 09:31
PROVIDERS: ATTEND Internal Medicine Hematology & Oncology
DX: N64.89 Other specified disorders of breast (principal); R92.8 Other abnormal and inconclusive findings on diagnostic imaging of breast; Z80.3 Family history of malignant neoplasm of breast; Z78.0 Asymptomatic menopausal state

== ENCOUNTER → 2024-01-28 | Outpatient (CLI) | payer MEDICARE, BC ==
--- NOTE | 2024-01-28 14:26 | USB ---
Reason for Exam: Clinical finding. Patient History: Menarche at age 15. First Full-Term at age 26. Postmenopausal. Patient has history of breast feeding. 10/04/2010, Benign Core Biopsy on the right side. 10/04/2010, Benign Cyst Aspiration on the right side. Maternal aunt had breast cancer. Mother had breast cancer, age 71. Risk Values: Ara 5 year model risk: 3.6%. NCI Lifetime model risk: 11.9%. Technique: Method: Targeted. Doppler: Color. Patient Position: Supine. Prior Study Comparison: 02/27/2022 Bilateral MG 3D screening mammo w/cad, [facility]. 04/10/2023 Bilateral MG 3D screening mammo w/cad, [facility]. 09/20/2023 Left MG 3D diag mammo w/cad , [facility]. 10/28/2023 Bilateral US breast workup limited [facility], [facility]. Findings: The area of palpable concern of the left breast, the axilla of the left breast and the retroareolar of the left breast were scanned. Subcutaneous slightly hyperechoic lesion is again noted at the left 2:00 position 5 cm from the nipple currently measuring 0.7 x 0.5 x 0.3 cm versus 0.8 x 0.5 x 0.3 cm previously. Continued follow-up is advised. Overall Assessment: Probably benign, BI-RAD 3 Management: Diagnostic Breast Ultrasound of the left breast in 6 months. A clinical breast exam by your physician is recommended on an annual basis and results should be correlated with mammographic findings. This exam should not preclude additional follow-up of suspicious palpable abnormalities. Results were given to the patient verbally at the time of exam. Electronically signed and approved by: Espinoza Farrell M.D. Radiologis
== END | disposition home or self-care (01) ==
LOC: RADUSWWP 14:01
PROVIDERS: ATTEND Internal Medicine Hematology & Oncology
DX: R92.8 Other abnormal and inconclusive findings on diagnostic imaging of breast (principal); Z78.0 Asymptomatic menopausal state; Z80.3 Family history of malignant neoplasm of breast

== ENCOUNTER → 2024-04-09 | Outpatient (CLI) | payer MEDICARE, BC ==
[2024-04-09 09:25] LABS: African American GFR (CKD) >90 (>60 ml/min/1.73 sqM); Blood Urea Nitrogen 14 mg/dL (7-17); Non-African American GFR(CKD) >90 (>60 ml/min/1.73 sqM)
--- NOTE | 2024-04-09 10:57 | CT ---
EXAMINATION TYPE: CT ChestAbdPelvis w con DATE OF EXAM: 04/09/2024 COMPARISON: 04/08/2023 HISTORY: MALIGNANT NEOPLASM OF ASCENDING COLON CT DLP: 617.1 mGycm Automated exposure control for dose reduction was used. CONTRAST: CT scan of the chest, abdomen and pelvis is performed with Oral Contrast and with IV Contrast, patien t injected with 100 mL of Isovue 300. FINDINGS: CT chest: There is no suspicious lung mass or nodule. There is no abnormal airspace/consolidative density or abnormal interstitial density. There is no pleural effusion, pleural thickening or pneumothorax. The great vessels and chest are normal there is no mediastinal, hilar or axillary adenopathy. No focal osseous lesions are seen. CT abdomen and pelvis: Gallbladder is normal without distention, pericholecystic fluid, wall thickening or gallstone. There is no biliary ductal dilatation. There is no focal mass or organomegaly involving the liver, pancreas, spleen or adrenal glands.. There is no solid renal mass or hydronephrosis. There is no retroperitoneal adenopathy or hemorrhage in the caliber of the abdominal aorta is normal. The bowel loops are normal in caliber and there is no dilatation or obstruction. Possible changes of partial right hemicolectomy. No inflammatory changes identified in the bowel wall and mesentery. Ther e is no free intracranial air or fluid. There is no pelvic mass or adenopathy. There is no free fluid within the pelvis. No focal osseous lesions are seen. Soft tissue the abdomen and pelvis are normal. There is moderate to marked degenerative disc disease in lower lumbar spine with a grade 1-2 anteroli sthesis of L5 on S1. There is [id number] S-shaped scoliosis of the thoracolumbar spine. IMPRESSION: No evidence of recurrent or metastatic disease within the chest, abdomen or pelvis. No significant in terval change compared to previous [facility], , 04/09/2024 10:55 AM
== END | disposition home or self-care (01) ==
LOC: RADCTMAIN 08:44
PROVIDERS: ATTEND Internal Medicine Hematology & Oncology
DX: C18.2 Malignant neoplasm of ascending colon
CPT/HCPCS: 36415; 71260; 74177; 82565; 84520

== ENCOUNTER → 2024-04-13 | Outpatient (CLI) | payer MEDICARE, BC ==
--- NOTE | 2024-04-13 10:22 | MM ---
Reason for Exam: Screening (asymptomatic). Last screening mammogram was performed 12 month(s) ago. Patient History: Menarche at age 15. First Full-Term at age 26. Postmenopausal. Patient has history of breast feeding. 10/04/2010, Benign Core Biopsy on the right side. 10/04/2010, Benign Cyst Aspiration on the right side. Maternal aunt had breast cancer. Mother had breast cancer, age 71. Risk Values: Ara 5 year model risk: 3.6%. NCI Lifetime model risk: 11.9%. Prior Study Comparison: 02/27/2022 Bilateral MG 3D screening mammo w/cad, [facility]. 04/10/2023 Bilateral MG 3D screening mammo w/cad, [facility]. 09/20/2023 Left MG 3D diag mammo w/cad , [facility]. Tissue Density: There are scattered areas of fibroglandular density. Findings: Analyzed By CAD. Right breast biopsy clip. Right breast: There is no suspicious group of microcalcifications or new suspicious mass. Left breast: There is no suspicious group of microcalcifications or new suspicious mass. Benign-appearing calcifications left breast. Overall Assessment: Benign, BI-RAD 2 Management: Screening Mammogram of both breasts in [address] [facility] will attempt to contact patient to return for supplemental views and ultrasound if indicated. Patient should continue monthly self-breast exams. A clinical breast exam by your physician is recommended on an annual basis. This exam should not preclude additional follow-up of suspicious palpable abnormalities. Note on Ara scores and lifetime risk: 1. A Ara score greater than 3% is considered moderate risk. If this is the case, consider specialist referral to assess eligibility for a risk reducing agent. 2. If overall lifetime risk for the development of breast cancer is 20% or higher, the patient may qualify for future screening with alternating mammogram and breast MRI. [facility], , 04/13/2024 10:18 AM. Electronically signed and approved by: Deo Lee DO
== END | disposition home or self-care (01) ==
LOC: RADMAMWWP 08:24
PROVIDERS: ATTEND Family Medicine
CPT/HCPCS: 77063; 77067